=== PATIENT | male | born 1945 | race Caucasian/White ===

== ENCOUNTER 2016-05-30 11:00 | Inpatient (IN) | payer MEDICARE, OTHER ==
[2016-05-30] MEDS ORDERED: ASPIRIN 81 MG TABLET, CHEWABLE PO ONE (11:25)
--- NOTE | 2016-05-30 11:27 | ER Document Report ---
ED Medical Screen (RME) - General Stated Complaint: NAUSEA Mode of Arrival: Ambulatory Information source: Patient Notes: Patient complains of epigastric pain for the past 3 days. Patient does report nausea and vomiting. Patient states pain radiates up to his throat. hx: High blood pressure, COPD, appendectomy I have greeted and performed a rapid initial assessment of this patient. A comprehensive ED assessment and evaluation of the patient, analysis of test results and completion of the medical decision making process will be conducted by additional ED providers. - Related Data Allergies/Adverse Reactions: Penicillins Allergy (Verified 05/30/16 11:23) Past Medical History - Past Medical History Cardiac Medical History: Reports: Hx Hypertension Pulmonary Medical History: Reports: Hx Asthma Past Surgical History: Reports: Hx Appendectomy - 05/28/2013 Physical Exam - Vital signs Vitals: Temp Pulse Resp BP Pulse Ox 98.1 F 78 20 148/73 H 95 05/30/16 11:22 05/30/16 11:22 05/30/16 11:22 05/30/16 11:22 05/30/16 11:22 - Abdominal Tenderness: Tender - Epigastric Course - Vital Signs Vital signs: Temp Pulse Resp BP Pulse Ox 98.1 F 78 20 148/73 H 95 05/30/16 11:22 05/30/16 11:22 05/30/16 11:22 05/30/16 11:22 05/30/16 11:22
[2016-05-30 12:05] LABS: ABSOLUTE EOSINOPHILS # (AUTO) 0.1 10^3/uL (0.0-0.6); ABSOLUTE LYMPHOCYTES (AUTO) 1.8 10^3/uL (0.5-4.7); ABSOLUTE MONOCYTES (AUTO) 1.2 10^3/uL (0.1-1.4); ABSOLUTE NEUT (AUTO) 5.5 10^3/uL (1.7-8.2); BASOPHILS % (AUTO) 0.2 % (0-2); EOSINOPHILS % (AUTO) 1.1 % (0-6); HEMATOCRIT 51.7 % (37.9-51.0); HEMOGLOBIN 17.4 g/dL (13.5-17.0); HGB HCT DIFFERENCE 0.5; LYMPHOCYTES % (AUTO) 20.8 % (13-45); MEAN CORPUSCULAR HGB CONC 33.7 g/dL (32.0-36.0); MEAN CORPUSCULAR VOLUME 92 fl (80-97); RED BLOOD COUNT 5.62 10^6/uL (4.35-5.55); RED CELL DISTRIBUTION WIDTH 13.8 % (11.5-14.0); SEGMENTED NEUTROPHILS % (AUTO) 63.9 % (42-78); WHITE BLOOD COUNT 8.6 10^3/uL (4.0-10.5)
[2016-05-30 12:27] LABS: ALANINE AMINOTRANSFERASE 131 U/L (21-72); ALBUMIN 4.3 g/dL (3.5-5.0); ALKALINE PHOSPHATASE 70 U/L (38-126); ANION GAP 11 (5-19); ASPARTATE AMINO TRANSFERASE 62 U/L (17-59); BILIRUBIN,TOTAL 0.6 mg/dL (0.2-1.3); BLOOD UREA NITROGEN 15 mg/dL (7-20); CALCIUM 9.2 mg/dL (8.4-10.2); CARBON DIOXIDE 31 mmol/L (22-30); CHLORIDE 102 mmol/L (98-107); CREATINE KINASE 61 U/L (55-170); CREATININE RESULT 1.05 mg/dL (0.52-1.25); GLUCOSE 104 mg/dL (75-110); LIPASE 38.1 U/L (23-300); MAGNESIUM 2.3 mg/dL (1.6-2.3); POTASSIUM 4.3 mmol/L (3.6-5.0); SODIUM 144.2 mmol/L (137-145); TOTAL PROTEIN 7.2 g/dL (6.3-8.2)
[2016-05-30 12:36] LABS: TROPONIN I < 0.012 ng/mL
[2016-05-30] MEDS ORDERED: METOCLOPRAMIDE HCL ORAL SOLN 10 MG/10 ML UDCUP PO ONE (12:55)
[2016-05-30] MEDS ORDERED: LIDOCAINE 2% VISCOUS SOLN 20 ML UDCUP PO ONE (12:55)
[2016-05-30] MEDS ORDERED: NORMAL SALINE 1000 ML 1,000 ML IV ONE (12:55)
[2016-05-30] MEDS ORDERED: PANTOPRAZOLE SODIUM 40 MG VIAL IV ONE (12:55)
[2016-05-30] MEDS ORDERED: MAG HYDROX/AL HYDROX/SIMETH SUSP 30 ML UDCUP PO ONE (12:55)
--- NOTE | 2016-05-30 13:02 | ER Document Report ---
ED GI/ - General Chief Complaint: Epigastric Pain Stated Complaint: NAUSEA Mode of Arrival: Ambulatory Information source: Patient Notes: This is a 71-year-old gentleman who presents to the emergency department with three-day history of upper abdominal discomfort and gas pains. He states that the pain is exacerbated by eating. His symptoms began on with some nausea and vomiting that persisted into Tuesday morning. He states that Tuesday he initially felt better but Tuesday evening his heartburn intensified as well as his nausea and upper abdominal discomfort. His bowel movements have been normal and his last bowel movement was today. Yesterday he tolerated scrambled eggs and oatmeal although that did make his abdominal pain worse. He has had nothing to eat today. TRAVEL OUTSIDE OF THE [place] IN LAST 30 DAYS: No - Related Data Allergies/Adverse Reactions: Penicillins Allergy (Verified 05/30/16 11:23) Past Medical History - General Information source: Patient - Social History Smoking Status: Former Smoker Chew tobacco use (# tins/day): No Frequency of alcohol use: None Drug Abuse: None Family History: Reviewed & Not Pertinent Patient has suicidal ideation: No Patient has homicidal ideation: No - Past Medical History Cardiac Medical History: Reports: Hx Hypertension Pulmonary Medical History: Reports: Hx Asthma Renal/ Medical History: Denies: Hx Peritoneal Dialysis Malignancy Medical History: Reports Hx Prostate Cancer Past Surgical History: Reports: Hx Appendectomy - 05/28/2013, Hx Herniorrhaphy, Hx Orthopedic Surgery - Immunizations Hx Pneumococcal Vaccination: 02/23/13 Review of Systems - Review of Systems Notes: REVIEW OF SYSTEMS: CONSTITUTIONAL : Denies fever, chills, or sweats. EENT: Denies eye, ear, throat, or mouth pain or symptoms. Denies nasal or sinus congestion. CARDIOVASCULAR: Denies chest pain. RESPIRATORY: Denies cough, cold, or chest congestion. Denies shortness of breath, difficulty breathing, or wheezing. GASTROINTESTINAL: As per history of present illness GENITOURINARY: Denies difficulty urinating, painful urination, burning, frequency, or blood in urine. MUSCULOSKELETAL: Denies neck or back pain or joint pain or swelling. SKIN: Denies rash or skin lesions. HEMATOLOGIC : Denies easy bruising or bleeding. LYMPHATIC: Denies swollen, enlarged glands. NEUROLOGICAL: Denies altered mental status or loss of consciousness. Denies headache. PSYCHIATRIC: Denies anxiety or stress or depression. ALL OTHER SYSTEMS REVIEWED AND NEGATIVE. Physical Exam - Vital signs Vitals: Temp Pulse Resp BP Pulse Ox 98.1 F 78 20 148/73 H 95 05/30/16 11:22 05/30/16 11:22 05/30/16 11:22 05/30/16 11:22 05/30/16 11:22 PHYSICAL EXAMINATION: GENERAL: Well-appearing, obese male in no acute distress. Pleasant and conversant HEAD: Atraumatic, normocephalic. EYES: Pupils equal round and reactive to light, extraocular movements intact, sclera anicteric, conjunctiva are normal. ENT: nares patent, oropharynx clear without exudates. Moist mucous membranes. NECK: Normal range of motion, supple without lymphadenopathy LUNGS: Breath sounds clear to auscultation bilaterally and equal. No wheezes rales or rhonchi. HEART: Regular rate and rhythm without murmurs ABDOMEN: obese, protuberant abdomen. Soft. Mild epigastric and RUQ TTP, no guarding/rebound/rigidity. Bowel sounds present, hypoactive EXTREMITIES: Normal range of motion, no pitting or edema. NEUROLOGICAL: No gross focal motor or sensory deficits appreciated PSYCH: Normal mood, normal affect. SKIN: Warm, Dry, normal turgor, no rashes or lesions noted. Course - Re-evaluation Re-evalutation: 05/30/16 13:02 This patient presents with symptoms concerning for dyspepsia, I'm also concerned for possible gallbladder disease. We'll obtain ultrasound of the gallbladder and proceed from there. 05/30/16 17:[address] of the abdomen and pelvis demonstrates proximal dilated proximal small bowel consistent with mechanical obstruction although no etiology of the obstruction is identified. Patient was discussed with general surgery Dr. Valera who will consult and hospitalist Dr. Alvarenga who will admit. I discussed the plan with the patient and his and all questions were answered. At this time patient is comfortable and denies any abdominal pain or nausea. - Vital Signs Vital signs: Temp Pulse Resp BP Pulse Ox 98.1 F 78 18 137/72 H 95 05/30/16 11:23 05/30/16 11:23 05/30/16 16:01 05/30/16 16:01 05/30/16 16:01 - Laboratory Result Diagrams: 05/30/16 11:50 05/30/16 11:50 Laboratory results interpreted by me: 05/30/16 05/30/16 11:50 11:50 RBC 5.62 H Hgb 17.4 H Hct 51.7 H Monocytes % 14.0 H Carbon Dioxide 31 H AST 62 H ALT 131 H - Diagnostic Test Radiology reviewed: Reports reviewed - Chest x-ray negative for consolidation Radiology results interpreted by me: 05/30/16 14:52 Gallbladder ultrasound reviewed as negative 05/30/16 17:27 CT of the abdomen and pelvis with IV contrast demonstrated dilated proximal small bowel consistent with mechanical obstruction. - EKG Interpretation by Me Additional EKG results interpreted by me: 05/30/16 13:03 EKG from 1157 demonstrates normal sinus rhythm with a rate of 76 with normal intervals and no ST elevation or depression. Discharge - Discharge Clinical Impression: Small bowel obstruction Morbid obesity Qualifiers: Obesity type: unspecified obesity type Qualified Code(s): E66.01 - Morbid ( severe) obesity due to excess calories Disposition: ADMITTED INPATIENT Admitting Provider: Hospitalist
[2016-05-30] MEDS ORDERED: DEXTROSE 5%-LACTATED RINGERS 1,000 ML IV ONE (17:34)
[2016-05-30] MEDS ORDERED: ONDANSETRON HCL INJ/PF 4 MG/2 ML SDV IV PRN (17:55)
[2016-05-30] MEDS ORDERED: NORMAL SALINE 1000 ML 1,000 ML IV PRN (17:55)
[2016-05-30] MEDS ORDERED: ACETAMINOPHEN 325 MG TABLET PO PRN (17:55)
--- NOTE | 2016-05-30 18:09 | PDOC H&P ---
History of Present Illness Admission Date/PCP: 05/30/[address] Stephenson Patient complains of: Abdominal pain History of Present Illness: OLAMIDE ROJAS JR is a 71 year old male who has a history of a ruptured appendix requiring surgery as well as umbilical hernia repair requiring mesh who presents with a small bowel obstruction. The patient reports that 4 days prior to admission he ate a salad bar began to feel nauseous and have some upper abdominal pain. The patient came to emergency room because his pain was continuing. He reports his last bowel movement was this morning and also has had flatus. Patient had a CT scan which shows dilated loops of small bowel consistent with small bowel obstruction. Patient denies having any fevers or chills. He denies any hematemesis. Denies any melena or bright red blood per rectum. The patient has had multiple abdominal surgeries as listed above. He denies any change in his weight he denies any fevers or chills or night sweats. Denies any change in the caliber of his stool. Past Medical History Cardiac Medical History: Reports: Hypertension Pulmonary Medical History: Reports: Asthma, Chronic Obstructive Pulmonary Disease (COPD) EENT Medical History: Reports: None Neurological Medical History: Reports: None Renal/ Medical History: Reports: None Malignancy Medical History: Reports: Other - Prostate cancer GI Medical History: Reports: Gastroesophageal Reflux Disease Musculoskeltal Medical History: Reports: None Psychiatric Medical History: Reports: None Traumatic Medical History: Reports: None Hematology: Reports: None Infectious Medical History: Reports: None Past Surgical History Past Surgical History: Reports: Appendectomy - 05/28/2013, Herniorrhaphy, Orthopedic Surgery Social History Information Source: Patient Lives with: Spouse/Significant other Smoking Status: Former Smoker Frequency of Alcohol Use: Occasional Hx Recreational Drug Use: No Drugs: None Hx Prescription Drug Abuse: No - Advance Directive Resuscitation Status: Full Code Family History Family History: Father lived to be age 73 and had prostate cancer. Mother at age 99 and had no chronic health problems. Parental Family History Reviewed: Yes Children Family History Reviewed: No Sibling(s) Family History Reviewed.: No Medication/Allergy Home Medications: Acetaminophen [Pain Reliever] 500 mg PO BID 05/28/13 Cetirizine HCl 1 tab PO DAILY 05/28/13 Folic Acid/Multivit-Min/Lutein [Centrum Silver Chewable Tablet] 1 tab PO DAILY 05/28/13 Lisinopril 10 mg PO QAM 05/28/13 [place]-3 Fatty Acids/Fish Oil [Fish Oil Softgel] 720 - 2,400 mg PO DAILY Oxycodone HCl/Acetaminophen [Percocet 5-325 mg Tablet] 1 tab PO Q4HP PRN #30 tablet 05/30/13 Esomeprazole Mag Trihydrate [Nexium] 40 mg PO DAILY #30 cap 06/01/13 Famotidine [Pepcid 20 mg Tablet] 20 mg PO BID #12 tablet 06/01/13 Hydrocodone/Acetaminophen [Vicodin 5-300 mg Tablet] 1 - 2 tab PO ASDIR PRN #30 tab 06/01/13 Allergies/Adverse Reactions: Penicillins Allergy (Verified 05/30/16 11:23) Review of Systems Constitutional: ABSENT: chills, fever(s), headache(s), weight gain, weight loss Eyes: ABSENT: visual disturbances Ears: ABSENT: hearing changes Cardiovascular: ABSENT: chest pain, dyspnea on exertion, edema, orthropnea, palpitations Respiratory: ABSENT: cough, hemoptysis Gastrointestinal: PRESENT: as per HPI Genitourinary: ABSENT: dysuria, hematuria Musculoskeletal: ABSENT: joint swelling Integumentary: ABSENT: rash, wounds Neurological: ABSENT: abnormal gait, abnormal speech, confusion, dizziness, focal weakness, syncope Psychiatric: ABSENT: anxiety, depression Endocrine: ABSENT: cold intolerance, heat intolerance, polydipsia, polyuria Hematologic/Lymphatic: ABSENT: easy bleeding, easy bruising Physical Exam Vital Signs: Temp Pulse Resp BP Pulse Ox 98.1 F 78 18 137/72 H 95 05/30/16 11:23 05/30/16 11:23 05/30/16 16:01 05/30/16 16:01 05/30/16 16:01 Intake & Output 05/29/16 05/30/16 05/31/16 06:59 06:59 06:59 Weight 143.2 kg General appearance: PRESENT: no acute distress, morbidly obese Head exam: PRESENT: atraumatic, normocephalic Eye exam: PRESENT: conjunctiva pink, EOMI, PERRLA. ABSENT: scleral icterus Ear exam: PRESENT: normal external ear exam Mouth exam: PRESENT: moist, tongue midline Neck exam: ABSENT: carotid bruit, JVD, lymphadenopathy, thyromegaly Respiratory exam: PRESENT: clear to auscultation bandar. ABSENT: rales, rhonchi, wheezes Cardiovascular exam: PRESENT: RRR. ABSENT: diastolic murmur, rubs, systolic murmur Pulses: PRESENT: normal dorsalis pedis pul Vascular exam: PRESENT: normal capillary refill GI/Abdominal exam: PRESENT: hypoactive bowel sounds, soft, tenderness - Mild tenderness in epigastric area. ABSENT: distended, guarding, mass, organolmegaly , rebound Rectal exam: PRESENT: deferred Extremities exam: ABSENT: calf tenderness, clubbing, pedal edema Neurological exam: PRESENT: alert, awake, oriented to person, oriented to place , oriented to time, oriented to situation, CN II-XII grossly intact. ABSENT: motor sensory deficit Psychiatric exam: PRESENT: appropriate affect Skin exam: PRESENT: dry, intact, warm. ABSENT: cyanosis, rash Results Laboratory Results: 05/30/16 11:50 05/30/16 11:50 05/30/16 05/30/16 11:50 11:50 WBC 8.6 RBC 5.62 H Hgb 17.4 H Hct 51.7 H MCV 92 MCH 31.0 MCHC 33.7 RDW 13.8 Plt Count 185 Seg Neutrophils % 63.9 Lymphocytes % 20.8 Monocytes % 14.0 H Eosinophils % 1.1 Basophils % 0.2 Absolute Neutrophils 5.5 Absolute Lymphocytes 1.8 Absolute Monocytes 1.2 Absolute Eosinophils 0.1 Absolute Basophils 0.0 Sodium 144.2 Potassium 4.3 Chloride 102 Carbon Dioxide 31 H Anion Gap 11 BUN 15 Creatinine 1.05 Est GFR ( Amer) > 60 Est GFR (Non-Af Amer) > 60 Glucose 104 Calcium 9.2 Magnesium 2.3 Total Bilirubin 0.6 AST 62 H ALT 131 H Alkaline Phosphatase 70 Total Protein 7.2 Albumin 4.3 Lipase 38.1 05/30/16 05/30/16 11:50 11:50 Creatine Kinase 61 CK-MB (CK-2) 0.30 Troponin I < 0.012 Impressions: Chest X-Ray 05/30/16 11:26 IMPRESSION: NO SIGNIFICANT RADIOGRAPHIC FINDING IN THE CHEST. Abdomen Ultrasound 05/30/16 12:56 IMPRESSION: No gallstones or gallbladder wall thickening. Fatty infiltration of the liver Abdomen/Pelvis CT 05/30/16 14:51 IMPRESSION: 1. DILATED PROXIMAL SMALL BOWEL, CONSISTENT WITH MECHANICAL OBSTRUCTION. NO OBVIOUS ETIOLOGY. 2. FATTY INFILTRATION OF THE LIVER. CORTICAL CYST IN THE RIGHT KIDNEY. NO OTHER SIGNIFICANT OR ACUTE FINDING IN THE ABDOMEN OR PELVIS ON CT SCAN WITH IV CONTRAST. Assessment & Plan - Diagnosis (1) Small bowel obstruction Is this a current diagnosis for this admission?: YesPlan: The patient has had abdominal pain for the last 4 days and has what appears to be a small bowel obstruction on CT scan. Patient reports that his last bowel movement was this morning and he has had flatus earlier today. We will treat conservatively with IV fluids and make him nothing by mouth. We'll repeat a KUB in the morning and ask general surgery to evaluate. I suspect that given his history of multiple abdominal surgeries that he has adhesions as the cause for this. There are no systemic symptoms to suggest any type of malignancy. (2) Gastroesophageal reflux disease Is this a current diagnosis for this admission?: YesPlan: Patient takes Nexium as an outpatient. We'll give Pepcid IV (3) COPD (chronic obstructive pulmonary disease) Is this a current diagnosis for this admission?: YesPlan: Patient has no wheezing on exam. Will give nebulizers as needed. (4) Hypertension Is this a current diagnosis for this admission?: YesPlan: Patient normally takes lisinopril as an outpatient. We'll hold for now and restart it when he is able to take by mouth. (5) Morbid obesity Qualifiers: Obesity type: unspecified obesity type Qualified Code(s): E66.01 - Morbid (severe) obesity due to excess calories Is this a current diagnosis for this admission?: Yes - Time Time Spent: 50 to 70 Minutes - Inpatient Certification Medical Necessity: Need Close Monitoring Due to Risk of Patient Decompensation, Need For IV Fluids - Plan Summary Plan Summary: Will admit as a general inpatient as I anticipate this will require greater than a 2 midnight hospital stay.
--- NOTE | 2016-05-30 18:55 | PDOC CONSULTATION ---
History of Present Illness History of Present Illness: Fransico Novoa Jr is a 71-year-old white male who reports intermittent nausea vomiting and abdominal pain since evening. He reports he had a salad bar Tiff[place] Tuesdays at 2 PM for late lunch, then half of a stuffed pepper at home at 7 PM for dinner, then began experiencing nausea and vomiting at 8 PM. Throughout the day Tuesday he had abdominal pain, moderate to severe, intermittent, sharp and crampy. He tried [place]. He was also bloated. He also had nausea and vomiting Tuesday. Tuesday he had nausea but no vomiting. He had significant belching and flatus. Abdominal pain continued but was not as severe. Tuesday morning he woke and had more abdominal pain, at times severe, intermittent. Each time he ate it made his nausea vomiting and abdominal pain worse. He had a bowel movement this morning which was normal in appearance. He had 2 bowel movements Tuesday. He denies blood in his stools, diarrhea, constipation, pain with urination, blood in his urine. He denies change in the color of his stools. He reports slightly more chapis urine. The patient has a history of appendectomy with lysis of adhesions in May 2013, umbilical herniorrhaphy in 1999, prostatectomy in 2002, and right ankle surgery for fracture repair. Review of systems is positive for headache for 1 day, sinus problems for 3 weeks , earache for 1 week, left greater than right, tinnitus for many years, back pain for many years, joint aches for many years. Past Medical History Cardiac Medical History: Reports: Hypertension Pulmonary Medical History: Reports: Asthma, Chronic Obstructive Pulmonary Disease (COPD) Endocrine Medical History: Reports: Obesity Malignancy Medical History: Reports: Other - Prostate cancer Past Surgical History Past Surgical History: Reports: Appendectomy - 05/28/2013, Herniorrhaphy, Orthopedic Surgery Social History Information Source: Patient Lives with: Spouse/Significant other Smoking Status: Former Smoker - 35 year pack history, quit 15 years ago. Last Time Smoked: around 2001 Frequency of Alcohol Use: Occasional - 1, occasionally 2, drinks per night Hx Recreational Drug Use: No Drugs: None Hx Prescription Drug Abuse: No - Advance Directive Resuscitation Status: Full Code Family History Family History: Malignancy - Sister with Hodgkin lymphoma, father with prostate cancer, Other - Son from pancreatic infection age 25. Parental Family History Reviewed: Yes Children Family History Reviewed: Yes Sibling(s) Family History Reviewed.: Yes Medication/Allergy Home Medications: Acetaminophen [Pain Reliever] 500 mg PO BID 05/28/13 Cetirizine HCl 1 tab PO DAILY 05/28/13 Folic Acid/Multivit-Min/Lutein [Centrum Silver Chewable Tablet] 1 tab PO DAILY 05/28/13 Lisinopril 10 mg PO QAM 05/28/13 [place]-3 Fatty Acids/Fish Oil [Fish Oil Softgel] 720 - 2,400 mg PO DAILY Oxycodone HCl/Acetaminophen [Percocet 5-325 mg Tablet] 1 tab PO Q4HP PRN #30 tablet 05/30/13 Esomeprazole Mag Trihydrate [Nexium] 40 mg PO DAILY #30 cap 06/01/13 Famotidine [Pepcid 20 mg Tablet] 20 mg PO BID #12 tablet 06/01/13 Hydrocodone/Acetaminophen [Vicodin 5-300 mg Tablet] 1 - 2 tab PO ASDIR PRN #30 tab 06/01/13 Allergies/Adverse Reactions: Penicillins Allergy (Verified 05/30/16 11:23) Review of Systems All systems: reviewed and no additional remarkable complaints except as stated Physical Exam Vital Signs: Temp Pulse Resp BP Pulse Ox 98.1 F 78 18 137/72 H 95 05/30/16 11:23 05/30/16 11:23 05/30/16 16:01 05/30/16 16:01 05/30/16 16:01 Intake & Output 05/29/16 05/30/16 05/31/16 06:59 06:59 06:59 Weight 143.2 kg General appearance: PRESENT: no acute distress, obese Head exam: PRESENT: normocephalic Eye exam: PRESENT: EOMI Mouth exam: PRESENT: moist, tongue midline Neck exam: ABSENT: JVD, lymphadenopathy, tenderness, thyromegaly Respiratory exam: PRESENT: clear to auscultation bandar Cardiovascular exam: PRESENT: RRR - Difficult to auscultate, but regular at the wrist GI/Abdominal exam: PRESENT: distended, soft, tenderness - Minimal tenderness to palpation.. ABSENT: firm, guarding, hernia, rebound, rigid Extremities exam: ABSENT: pedal edema, tenderness Musculoskeletal exam: ABSENT: deformity, tenderness Neurological exam: PRESENT: alert, oriented to person, oriented to place, oriented to time, oriented to situation Psychiatric exam: PRESENT: appropriate affect, normal mood Skin exam: ABSENT: jaundice, rash Results Laboratory Results: 05/30/16 11:50 05/30/16 11:50 05/30/16 05/30/16 11:50 11:50 WBC 8.6 RBC 5.62 H Hgb 17.4 H Hct 51.7 H MCV 92 MCH 31.0 MCHC 33.7 RDW 13.8 Plt Count 185 Seg Neutrophils % 63.9 Lymphocytes % 20.8 Monocytes % 14.0 H Eosinophils % 1.1 Basophils % 0.2 Absolute Neutrophils 5.5 Absolute Lymphocytes 1.8 Absolute Monocytes 1.2 Absolute Eosinophils 0.1 Absolute Basophils 0.0 Sodium 144.2 Potassium 4.3 Chloride 102 Carbon Dioxide 31 H Anion Gap 11 BUN 15 Creatinine 1.05 Est GFR ( Amer) > 60 Est GFR (Non-Af Amer) > 60 Glucose 104 Calcium 9.2 Magnesium 2.3 Total Bilirubin 0.6 AST 62 H ALT 131 H Alkaline Phosphatase 70 Total Protein 7.2 Albumin 4.3 Lipase 38.1 05/30/16 05/30/16 11:50 11:50 Creatine Kinase 61 CK-MB (CK-2) 0.30 Troponin I < 0.012 Impressions: Chest X-Ray 05/30/16 11:26 IMPRESSION: NO SIGNIFICANT RADIOGRAPHIC FINDING IN THE CHEST. Abdomen Ultrasound 05/30/16 12:56 IMPRESSION: No gallstones or gallbladder wall thickening. Fatty infiltration of the liver Abdomen/Pelvis CT 05/30/16 14:51 IMPRESSION: 1. DILATED PROXIMAL SMALL BOWEL, CONSISTENT WITH MECHANICAL OBSTRUCTION. NO OBVIOUS ETIOLOGY. 2. FATTY INFILTRATION OF THE LIVER. CORTICAL CYST IN THE RIGHT KIDNEY. NO OTHER SIGNIFICANT OR ACUTE FINDING IN THE ABDOMEN OR PELVIS ON CT SCAN WITH IV CONTRAST. Status: Image reviewed by me Assessment & Plan - Diagnosis (1) History of prostate cancer Is this a current diagnosis for this admission?: Yes (2) History of appendectomy Is this a current diagnosis for this admission?: Yes (3) History of umbilical hernia repair Is this a current diagnosis for this admission?: Yes (4) COPD (chronic obstructive pulmonary disease) Is this a current diagnosis for this admission?: YesPlan: Per medicine (5) Hypertension Is this a current diagnosis for this admission?: Yes (6) Morbid obesity Qualifiers: Obesity type: unspecified obesity type Qualified Code(s): E66.01 - Morbid (severe) obesity due to excess calories Is this a current diagnosis for this admission?: Yes (7) Small bowel obstruction Is this a current diagnosis for this admission?: YesPlan: Partial small bowel obstruction. Very likely due to adhesions from previous prostate cancer surgery, umbilical hernia repair, and appendectomy for suppurative appendicitis. He was noted to have adhesions at the time of his appendectomy in 2013, and lysis of adhesions was performed to gain access to the appendix at that time. Discussed nonoperative versus operative management and indications for each. He does not have an acute abdomen, his white count is normal, his vitals are stable. Recommend nonoperative management with NG tube, IV fluids, NPO/bowel rest. Discussed indications for proceeding to the operating room. He and his understand and wish to proceed with nonoperative management of partial small bowel obstruction.
--- NOTE | 2016-05-30 19:26 | EKG REPORT ---
SEVERITY:- NORMAL ECG - SINUS RHYTHM : Confirmed by: Traci Landry 30-May-2016 19:25:36
[2016-05-30] MEDS: FAMOTIDINE INJ/PF 20 MG/2 ML SDV IV SCH (21:45)
[2016-05-31] MEDS ORDERED: INFLUENZA ADLT QUAD (36MOS+) 2016-17 VAC 0.5 ML SYR IM PRN (02:18)
[2016-05-31 06:07] LABS: MEAN CORPUSCULAR VOLUME 92 fl (80-97)
[2016-05-31 06:12] LABS: ABSOLUTE EOSINOPHILS # (AUTO) 0.2 10^3/uL (0.0-0.6); ABSOLUTE LYMPHOCYTES (AUTO) 1.6 10^3/uL (0.5-4.7); ABSOLUTE MONOCYTES (AUTO) 0.8 10^3/uL (0.1-1.4); ABSOLUTE NEUT (AUTO) 4.5 10^3/uL (1.7-8.2); BASOPHILS % (AUTO) 0.3 % (0-2); EOSINOPHILS % (AUTO) 2.7 % (0-6); HEMATOCRIT 45.8 % (37.9-51.0); HGB HCT DIFFERENCE 0.7; MEAN CORPUSCULAR HEMOGLOBIN 31.1 pg (27.0-33.4); MEAN CORPUSCULAR HGB CONC 33.9 g/dL (32.0-36.0); RED CELL DISTRIBUTION WIDTH 13.4 % (11.5-14.0); WHITE BLOOD COUNT 7.2 10^3/uL (4.0-10.5)
[2016-05-31 06:20] LABS: HEMOGLOBIN 15.5 g/dL (13.5-17.0)
[2016-05-31 06:23] LABS: ANION GAP 9 (5-19); BLOOD UREA NITROGEN 13 mg/dL (7-20); CALCIUM 8.5 mg/dL (8.4-10.2); CARBON DIOXIDE 27 mmol/L (22-30); CHLORIDE 106 mmol/L (98-107); CREATININE RESULT 0.94 mg/dL (0.52-1.25); GLUCOSE 94 mg/dL (75-110); MAGNESIUM 2.2 mg/dL (1.6-2.3); SODIUM 141.5 mmol/L (137-145)
[2016-05-31] MEDS: FAMOTIDINE INJ/PF 20 MG/2 ML SDV IV SCH (10:17)
--- NOTE | 2016-05-31 10:19 | PDOC PROGRESS REPORT ---
Subjective Progress Note for:: 05/31/16 Subjective:: Patient states she feels better. He passed some flatus. Physical Exam Vital Signs: Temp Pulse Resp BP Pulse Ox 97.5 F 73 22 H 145/67 H 97 05/31/16 07:40 05/31/16 07:40 05/31/16 07:40 05/31/16 07:40 05/31/16 07:40 Intake & Output 05/30/16 05/31/16 06/01/16 06:59 06:59 06:59 Weight 143.2 kg General appearance: PRESENT: no acute distress GI/Abdominal exam: PRESENT: other - Distended likely due to obesity; bowel sounds hypoactive. No peritoneal signs no guarding no rigidity. No evidence of mechanical abdominal wall problem. Results Laboratory Results: 05/31/16 05:36 05/31/16 05:36 05/31/16 05/31/16 05:36 05:36 WBC 7.2 RBC 5.00 Hgb 15.5 Hct 45.8 MCV 92 MCH 31.1 MCHC 33.9 RDW 13.4 Plt Count 147 L Seg Neutrophils % 63.0 Lymphocytes % 23.0 Monocytes % 11.0 Eosinophils % 2.7 Basophils % 0.3 Absolute Neutrophils 4.5 Absolute Lymphocytes 1.6 Absolute Monocytes 0.8 Absolute Eosinophils 0.2 Absolute Basophils 0.0 Sodium 141.5 Potassium 4.0 Chloride 106 Carbon Dioxide 27 Anion Gap 9 BUN 13 Creatinine 0.94 Est GFR ( Amer) > 60 Est GFR (Non-Af Amer) > 60 Glucose 94 Calcium 8.5 Magnesium 2.2 Impressions: Chest X-Ray 05/30/16 11:26 IMPRESSION: NO SIGNIFICANT RADIOGRAPHIC FINDING IN THE CHEST. Abdomen Ultrasound 05/30/16 12:56 IMPRESSION: No gallstones or gallbladder wall thickening. Fatty infiltration of the liver Abdomen/Pelvis CT 05/30/16 14:51 IMPRESSION: 1. DILATED PROXIMAL SMALL BOWEL, CONSISTENT WITH MECHANICAL OBSTRUCTION. NO OBVIOUS ETIOLOGY. 2. FATTY INFILTRATION OF THE LIVER. CORTICAL CYST IN THE RIGHT KIDNEY. NO OTHER SIGNIFICANT OR ACUTE FINDING IN THE ABDOMEN OR PELVIS ON CT SCAN WITH IV CONTRAST. KUB X-Ray 05/31/16 07:00 IMPRESSION: Some decrease in small bowel dilatation. Assessment & Plan - Diagnosis (1) Small bowel obstruction Is this a current diagnosis for this admission?: YesPlan: 1. I have the opportunity to review his abdominal films this morning. Examination, as well as his course over the last 24 hours, and repeat imaging suggest the patient gastroenteritis. SMall bowel obstruction appears very unlikely. 2. Will start diet with clear liquids and advance as tolerated. 3. I spoke with Dr. Jassi Alvarenga about the above. Surgery will sign off; will be available for re-consultation if clinically indicated
--- NOTE | 2016-05-31 11:48 | PDOC PROGRESS REPORT ---
Subjective Progress Note for:: 05/31/16 Subjective:: Patient feels better. He has been passing some flatus. Physical Exam Vital Signs: Temp Pulse Resp BP Pulse Ox 97.5 F 73 22 H 145/67 H 97 05/31/16 07:40 05/31/16 07:40 05/31/16 07:40 05/31/16 07:40 05/31/16 07:40 Intake & Output 05/30/16 05/31/16 06/01/16 06:59 06:59 06:59 Weight 143.2 kg General appearance: PRESENT: no acute distress Eye exam: PRESENT: conjunctiva pink. ABSENT: scleral icterus Mouth exam: PRESENT: moist, tongue midline Neck exam: ABSENT: JVD Respiratory exam: PRESENT: clear to auscultation bandar. ABSENT: rales, rhonchi, wheezes Cardiovascular exam: PRESENT: RRR. ABSENT: diastolic murmur, rubs, systolic murmur GI/Abdominal exam: PRESENT: normal bowel sounds, soft. ABSENT: distended, guarding, mass, organolmegaly, rebound, tenderness Extremities exam: ABSENT: calf tenderness, clubbing, pedal edema Neurological exam: PRESENT: alert, awake, oriented to person, oriented to place , oriented to time, oriented to situation Psychiatric exam: PRESENT: appropriate affect Skin exam: PRESENT: dry, intact, warm. ABSENT: cyanosis, rash Results Laboratory Results: 05/31/16 05:36 05/31/16 05:36 05/31/16 05/31/16 05:36 05:36 WBC 7.2 RBC 5.00 Hgb 15.5 Hct 45.8 MCV 92 MCH 31.1 MCHC 33.9 RDW 13.4 Plt Count 147 L Seg Neutrophils % 63.0 Lymphocytes % 23.0 Monocytes % 11.0 Eosinophils % 2.7 Basophils % 0.3 Absolute Neutrophils 4.5 Absolute Lymphocytes 1.6 Absolute Monocytes 0.8 Absolute Eosinophils 0.2 Absolute Basophils 0.0 Sodium 141.5 Potassium 4.0 Chloride 106 Carbon Dioxide 27 Anion Gap 9 BUN 13 Creatinine 0.94 Est GFR ( Amer) > 60 Est GFR (Non-Af Amer) > 60 Glucose 94 Calcium 8.5 Magnesium 2.2 Impressions: Chest X-Ray 05/30/16 11:26 IMPRESSION: NO SIGNIFICANT RADIOGRAPHIC FINDING IN THE CHEST. Abdomen Ultrasound 05/30/16 12:56 IMPRESSION: No gallstones or gallbladder wall thickening. Fatty infiltration of the liver Abdomen/Pelvis CT 05/30/16 14:51 IMPRESSION: 1. DILATED PROXIMAL SMALL BOWEL, CONSISTENT WITH MECHANICAL OBSTRUCTION. NO OBVIOUS ETIOLOGY. 2. FATTY INFILTRATION OF THE LIVER. CORTICAL CYST IN THE RIGHT KIDNEY. NO OTHER SIGNIFICANT OR ACUTE FINDING IN THE ABDOMEN OR PELVIS ON CT SCAN WITH IV CONTRAST. KUB X-Ray 05/31/16 07:00 IMPRESSION: Some decrease in small bowel dilatation. Assessment & Plan - Diagnosis (1) Small bowel obstruction Is this a current diagnosis for this admission?: YesPlan: The patient has had improvement and is passing flatus. He has been evaluated by surgery who recommends that we advance his diet to full liquids. Will observe today and will you discharge home later this afternoon or tomorrow. Most likely has intra-abdominal adhesions as the cause for his symptoms. (2) Gastroesophageal reflux disease Is this a current diagnosis for this admission?: YesPlan: Patient takes Nexium as an outpatient. (3) COPD (chronic obstructive pulmonary disease) Is this a current diagnosis for this admission?: YesPlan: Patient has no wheezing on exam. Will give nebulizers as needed. (4) Hypertension Is this a current diagnosis for this admission?: YesPlan: Patient normally takes lisinopril as an outpatient. We'll hold for now and restart it when he is able to take by mouth. (5) Morbid obesity Qualifiers: Obesity type: unspecified obesity type Qualified Code(s): E66.01 - Morbid (severe) obesity due to excess calories Is this a current diagnosis for this admission?: Yes - Time Time Spent with patient: 25-34 minutes
--- NOTE | 2016-05-31 16:52 | PDOC DISCHARGE SUMMARY ---
General - Admit/Disc Date/PCP Admission Date/Primary Care Provider: 05/30/16 17:55 Discharge Date: 05/31/16 - Discharge Diagnosis (1) Small bowel obstruction Is this a current diagnosis for this admission?: YesSummary: With resolution of obstruction spontaneously. (2) Gastroesophageal reflux disease Is this a current diagnosis for this admission?: Yes (3) COPD (chronic obstructive pulmonary disease) Is this a current diagnosis for this admission?: Yes (4) Hypertension Is this a current diagnosis for this admission?: Yes (5) Morbid obesity Is this a current diagnosis for this admission?: Yes - Additional Information Resuscitation Status: Full Code Discharge Diet: Full Liquids - x 24 hours then regular Discharge Activity: Activity As Tolerated Home Medications: Acetaminophen [Tylenol Extra Strength 500 mg Tablet] 1,000 mg PO Q12 05/31/16 Albuterol Sulfate [Proair HFA] 1 puff IH Q4HP PRN 05/31/16 Ascorbic Acid [Vitamin C 500 mg Tablet] 500 mg PO DAILY 05/31/16 Calcium Carbonate/Vitamin D3 [Calcium 600 + Vit D Tablet] 1 tab PO DAILY Cetirizine HCl [Zyrtec 10 mg Tablet] 10 mg PO DAILY 05/31/16 Cyanocobalamin (Vitamin B-12) [Vitamin B12] 5,000 mcg PO DAILY 05/31/16 Fish Oil/Dha/Epa [Fish Oil 1,200 mg Fish Oil] 2,400 mg PO DAILY 05/31/16 Fluticasone/Salmeterol [Advair 250-50 Diskus 28 dose] 1 inh PO Q12 05/31/16 Gluc Alexander/Chondro Alexander A/Vit C/Mn [Glucosamine 1,500 Complex Cap] 1 cap PO DAILY 10/09 Lisinopril [Prinivil 10 mg Tablet] 10 mg PO DAILY 05/31/16 Meloxicam [Mobic 15 mg Tablet] 15 mg PO DAILY 05/31/16 Multivit-Min/FA/Lycopen/Lutein [Centrum Silver Men Tablet] 1 each PO DAILY 05/31 Vitamin B Complex 1 tab PO DAILY 05/31/16 History of Present Illness History of Present Illness: OLAMIDE ROJAS JR is a 71 year old male who has a history of a ruptured appendix requiring surgery as well as umbilical hernia repair requiring mesh who presents with a small bowel obstruction. The patient reports that 4 days prior to admission he ate a salad bar began to feel nauseous and have some upper abdominal pain. The patient came to emergency room because his pain was continuing. He reports his last bowel movement was this morning and also has had flatus. Patient had a CT scan which shows dilated loops of small bowel consistent with small bowel obstruction. Patient denies having any fevers or chills. He denies any hematemesis. Denies any melena or bright red blood per rectum. The patient has had multiple abdominal surgeries as listed above. He denies any change in his weight he denies any fevers or chills or night sweats. Denies any change in the caliber of his stool. Hospital Course Hospital Course: Patient was admitted with a small bowel obstruction. He was given fluids overnight and he had continued flatus and did have a bowel movement on the day of discharge. He was evaluated with repeat x-rays as well as a surgical evaluation was felt that he had no evidence for obstruction at this time. Because of this we started him on a clear liquid diet which she tolerated well. He is instructed to do a full liquid diet for the next 24 hours and go to a regular diet after that. He will return if his pain worsens or if he notices that his bowels stop working again. Physical Exam Vital Signs: Temp Pulse Resp BP Pulse Ox 97.4 F 81 20 147/66 H 96 05/31/16 11:56 05/31/16 11:56 05/31/16 11:56 05/31/16 11:56 05/31/16 11:56 Intake & Output 05/30/16 05/31/16 06/01/16 06:59 06:59 06:59 Weight 143.2 kg General appearance: PRESENT: no acute distress Eye exam: PRESENT: conjunctiva pink. ABSENT: scleral icterus Ear exam: PRESENT: normal external ear exam Mouth exam: PRESENT: moist, tongue midline Neck exam: ABSENT: carotid bruit, JVD, lymphadenopathy, thyromegaly Respiratory exam: PRESENT: clear to auscultation bandar. ABSENT: rales, rhonchi, wheezes Cardiovascular exam: PRESENT: RRR. ABSENT: diastolic murmur, rubs, systolic murmur Pulses: PRESENT: normal dorsalis pedis pul GI/Abdominal exam: PRESENT: normal bowel sounds, soft. ABSENT: distended, guarding, mass, organolmegaly, rebound, tenderness Extremities exam: PRESENT: full ROM. ABSENT: calf tenderness, clubbing, pedal edema Neurological exam: PRESENT: alert, awake, oriented to person, oriented to place , oriented to time, oriented to situation Psychiatric exam: PRESENT: appropriate affect Skin exam: PRESENT: dry, intact, warm. ABSENT: cyanosis, rash Results Laboratory Results: 05/31/16 05:36 05/31/16 05:36 05/31/16 05/31/16 05:36 05:36 WBC 7.2 RBC 5.00 Hgb 15.5 Hct 45.8 MCV 92 MCH 31.1 MCHC 33.9 RDW 13.4 Plt Count 147 L Seg Neutrophils % 63.0 Lymphocytes % 23.0 Monocytes % 11.0 Eosinophils % 2.7 Basophils % 0.3 Absolute Neutrophils 4.5 Absolute Lymphocytes 1.6 Absolute Monocytes 0.8 Absolute Eosinophils 0.2 Absolute Basophils 0.0 Sodium 141.5 Potassium 4.0 Chloride 106 Carbon Dioxide 27 Anion Gap 9 BUN 13 Creatinine 0.94 Est GFR ( Amer) > 60 Est GFR (Non-Af Amer) > 60 Glucose 94 Calcium 8.5 Magnesium 2.2 Impressions: Chest X-Ray 05/30/16 11:26 IMPRESSION: NO SIGNIFICANT RADIOGRAPHIC FINDING IN THE CHEST. Abdomen Ultrasound 05/30/16 12:56 IMPRESSION: No gallstones or gallbladder wall thickening. Fatty infiltration of the liver Abdomen/Pelvis CT 05/30/16 14:51 IMPRESSION: 1. DILATED PROXIMAL SMALL BOWEL, CONSISTENT WITH MECHANICAL OBSTRUCTION. NO OBVIOUS ETIOLOGY. 2. FATTY INFILTRATION OF THE LIVER. CORTICAL CYST IN THE RIGHT KIDNEY. NO OTHER SIGNIFICANT OR ACUTE FINDING IN THE ABDOMEN OR PELVIS ON CT SCAN WITH IV CONTRAST. KUB X-Ray 05/31/16 07:00 IMPRESSION: Some decrease in small bowel dilatation. Qualifiers PATEINT BEING DISCHARGED WITH ANY OF THE FOLLOWING DIAGNOSIS?: No Plan Discharge Plan: Discharged to home. Will follow up with primary care in 1-2 weeks. Time Spent: Less than 30 Minutes
[2016-05-31 17:36] VITALS: BP 134/67
== END 2016-05-31 17:36 | disposition home or self-care (01) | DRG 389 ==
LOC: ER 11:00 → EH 17:55 → UNDOADMIN 18:46 → EH 18:46 → 4W 05-31 00:30
PROVIDERS: ADMIT Internal Medicine; ATTEND Internal Medicine
PROC: 3E0234Z Introduction of Serum, Toxoid and Vaccine into Muscle, Percutaneous Approach (ICD-10-PCS; principal; 2016-05-31)
DX: K56.60 Unspecified intestinal obstruction (principal); Z68.41 Body mass index [BMI] 40.0-44.9, adult; K21.9 Gastro-esophageal reflux disease without esophagitis; J44.9 Chronic obstructive pulmonary disease, unspecified; I10 Essential (primary) hypertension; E66.01 Morbid (severe) obesity due to excess calories; J45.909 Unspecified asthma, uncomplicated; Z90.49 Acquired absence of other specified parts of digestive tract; Z85.46 Personal history of malignant neoplasm of prostate; Z90.79 Acquired absence of other genital organ(s); Z87.891 Personal history of nicotine dependence; Z80.7 Family history of other malignant neoplasms of lymphoid, hematopoietic and related tissues; Z88.0 Allergy status to penicillin; Z79.899 Other long term (current) drug therapy; Z23 Encounter for immunization
CPT/HCPCS: 36415; 71020; 74000; 74177; 76705; 80048; 80053; 80074; 82550; 82553; 83690; 83735; 84484; 85025; 90686; 93005; 93010; 96361; 96374; 99285; J3490; J7030; S0028; S0164

== ENCOUNTER → 2017-09-22 | Outpatient (CLI) | payer MEDICARE, OTHER ==
--- NOTE | 2017-09-22 16:44 | RADIOLOGY REPORT (SQ) ---
EXAM DESCRIPTION: MRI LT LOWER JOINT WITHOUT COMPLETED DATE/TIME: 09/22/2017 9:47 am REASON FOR STUDY: L KNEE PAIN M25.562 PAIN IN LEFT KNEE COMPARISON: None. TECHNIQUE: Leftknee images acquired and stored on PACS. Multiplanar images include fat sensitive se quences as T1, water sensitive sequences as FST2 or STIR, cartilage sensitive sequences as FSPD, and gradient echo sequences. LIMITATIONS: None. FINDINGS: JOINT AND BURSAE: Joint effusion. BONE CORTEX AND MARROW: No alteration of signal to suggest marrow replacement. No worrisome bone lesi ons. No occult fracture. ACL: Intact. No degeneration or ganglion cyst. PCL: Intact. MCL: Intact. No periligamentous edema or fluid. LCL: Intact. No periligamentous edema or fluid. MEDIAL MENISCUS: Medial migration. Attenuated. Increased signal posterior horn extending to the art icular surface in the horizontal plane. LATERAL MENISCUS: Attenuated. Increased signal anterior horn extending to the articular surface in t he horizontal plane. MEDIAL COMPARTMENT: Cartilage loss. Small osteophytes. LATERAL COMPARTMENT: Cartilage thinning. No large osteophytes. PATELLA: Cartilage thinning. Mild subchondral cyst formation. Intact retinaculum. EXTENSOR MECHANISM: Intact. Quadriceps and patella tendons normal. SOFT TISSUES: Adjacent muscles and subcutaneous tissues normal. Normal flow void in popliteal artery and vein. OTHER: No other significant finding. IMPRESSION: 1. Chronic appearing horizontal tears posterior horn medial meniscus and anterior horn lateral menisc us. 2. 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 3. Joint effusion. TECHNICAL DOCUMENTATION: JOB ID: [id number] [employer]- All Rights Reserved Reading location - IP/workstation name: [email or web address]
== END ==
LOC: RAD 08:49
PROVIDERS: ATTEND Orthopaedic Surgery Sports Medicine
DX: M25.562 Pain in left knee (principal)

== ENCOUNTER → 2018-01-27 | Outpatient (CLI) | payer MEDICARE, OTHER ==
--- NOTE | 2018-01-27 13:29 | RADIOLOGY REPORT (SQ) ---
EXAM DESCRIPTION: MRI LUMBAR SPINE WITHOUT COMPLETED DATE/TIME: 01/27/2018 12:59 pm REASON FOR STUDY: M54.16 RADICULOPATHY, LUMBAR REGION M54.16 RADICULOPATHY, LUMBAR REGION COMPARISON: None. TECHNIQUE: Sagittal and Axial imaging includes T1, T2, STIR and gradient echo sequences. Coronal T2/ HASTE imaging. LIMITATIONS: None. FINDINGS: VISUALIZED UPPER ABDOMEN: Limited evaluation. No acute or suspicious findings suggested. SEGMENTATION: No transitional anatomy. The lowest well-developed disc space is labeled L5-S1. ALIGNMENT: Minimal grade 1 anterolisthesis of L4 over L5. VERTEBRAE: Intact. BONE MARROW: Normal. No marrow replacement or reactive changes. DISC SIGNAL: Diffuse decreased T2 weighted intervertebral disc signal POSTERIOR ELEMENTS: Generally intact. No pars defect evident. HARDWARE: None in the spine. CORD AND CONUS: Normal in size and signal intensity. Conus at the L1-2 level. SOFT TISSUES: No aortic aneurysm seen. No bulky retroperitoneal adenopathy or mass. No paraspinal mas s or fluid. T11-12: Unremarkable T12-L1: Unremarkable L1-L2: Unremarkable L2-L3: Minimal diffuse posterior disc bulging, mild bilateral facet and ligament hypertrophy. No percy tral stenosis. Mild bilateral inferior foraminal narrowing without exit L2 nerve root impingement L3-L4: Minimal posterior disc bulge. Mild bilateral facet and ligament hypertrophy. No central brianan l narrowing. Mild bilateral foraminal stenosis. L4-L5: Grade 1 anterolisthesis of L4 over L5 is present, with bulky bilateral facet hypertrophy. No central stenosis. Moderate bilateral foraminal narrowing right greater than left. There is some par tial effacement of the fat planes around the exiting L4 nerve roots bilaterally L5-S1: Minimal posterior disc bulging, mild bilateral facet and ligament hypertrophy. No central henrique nosis or significant foraminal narrowing SACRUM: Visualized upper sacrum intact. OTHER: No other significant findings. IMPRESSION: Degenerative changes most pronounced at L4-5 TECHNICAL DOCUMENTATION: JOB ID: [id number] [employer]- All Rights Reserved Reading location - IP/workstation name: [email or web address]
== END ==
LOC: RAD 16:25
PROVIDERS: ATTEND Orthopaedic Surgery Sports Medicine
DX: M54.16 Radiculopathy, lumbar region (principal)
CPT/HCPCS: 72148

== ENCOUNTER 2018-07-07 05:35 | Emergency (ER) | payer MEDICARE, OTHER ==
[2018-07-07] MEDS ORDERED: ONDANSETRON HCL INJ/PF 4 MG/2 ML SDV IV ONE ×2 (09:14→12:53)
--- NOTE | 2018-07-07 09:16 | RADIOLOGY REPORT (SQ) ---
EXAM DESCRIPTION: CHEST SINGLE VIEW COMPLETED DATE/TIME: 07/07/2018 9:07 am REASON FOR STUDY: sob COMPARISON: 05/30/2016 EXAM PARAMETERS: NUMBER OF VIEWS: One view. TECHNIQUE: Single frontal radiographic view of the chest acquired. RADIATION DOSE: NA LIMITATIONS: None. FINDINGS: LUNGS AND PLEURA: No opacities, masses or pneumothorax. No pleural effusion. MEDIASTINUM AND HILAR STRUCTURES: No masses. Contour normal. HEART AND VASCULAR STRUCTURES: Stable appearance. Normal vasculature. BONES: No acute findings. HARDWARE: None in the chest. OTHER: No other significant finding. IMPRESSION: 1. No significant interval changes since the prior study dated 05/30/2016. No acute find ings. TECHNICAL DOCUMENTATION: JOB ID: [id number] [employer]- All Rights Reserved Reading location - IP/workstation name: [email or web address]
[2018-07-07 09:27] LABS: ABSOLUTE LYMPHOCYTES (AUTO) 1.3 10^3/uL (0.5-4.7); ABSOLUTE MONOCYTES (AUTO) 0.9 10^3/uL (0.1-1.4); ABSOLUTE NEUT (AUTO) 6.3 10^3/uL (1.7-8.2); BASOPHILS % (AUTO) 0.1 % (0-2); EOSINOPHILS % (AUTO) 0.2 % (0-6); HEMATOCRIT 50.1 % (37.9-51.0); HEMOGLOBIN 17.3 g/dL (13.5-17.0); LYMPHOCYTES % (AUTO) 15.7 % (13-45); MEAN CORPUSCULAR HEMOGLOBIN 31.8 pg (27.0-33.4); MEAN CORPUSCULAR HGB CONC 34.6 g/dL (32.0-36.0); MEAN CORPUSCULAR VOLUME 92 fl (80-97); MONOCYTES % (AUTO) 10.3 % (3-13); PLATELET COUNT 218 10^3/uL (150-450); RED BLOOD COUNT 5.44 10^6/uL (4.35-5.55); RED CELL DISTRIBUTION WIDTH 13.5 % (11.5-14.0); SEGMENTED NEUTROPHILS % (AUTO) 73.7 % (42-78); TOTAL CELLS COUNTED % (AUTO) 100 %; WHITE BLOOD COUNT 8.5 10^3/uL (4.0-10.5)
[2018-07-07 09:33] LABS: INTERNATIONAL RATION (INR) 0.98; PROTHROMBIN TIME 13.5 SEC (11.4-15.4)
[2018-07-07 09:42] LABS: ALANINE AMINOTRANSFERASE 38 U/L (21-72); ALBUMIN 4.7 g/dL (3.5-5.0); ALKALINE PHOSPHATASE 65 U/L (38-126); ANION GAP 14 (5-19); ASPARTATE AMINO TRANSFERASE 27 U/L (17-59); BILIRUBIN,DIRECT 0.3 mg/dL (0.0-0.4); BILIRUBIN,TOTAL 0.7 mg/dL (0.2-1.3); BLOOD UREA NITROGEN 19 mg/dL (7-20); CARBON DIOXIDE 27 mmol/L (22-30); CHLORIDE 101 mmol/L (98-107); CREATINE KINASE 28 U/L (55-170); GLUCOSE 113 mg/dL (75-110); POTASSIUM 3.8 mmol/L (3.6-5.0); SODIUM 141.8 mmol/L (137-145); TOTAL PROTEIN 7.6 g/dL (6.3-8.2)
[2018-07-07 09:55] LABS: CREATINE KINASE MB < 0.22 ng/mL (<4.55); TROPONIN I < 0.012 ng/mL
[2018-07-07] MEDS ORDERED: NORMAL SALINE 500 ML IV ONE (10:26)
[2018-07-07] MEDS ORDERED: NORMAL SALINE 1000 ML 1,000 ML IV ONE (10:26)
--- NOTE | 2018-07-07 12:40 | RADIOLOGY REPORT (SQ) ---
EXAM DESCRIPTION: CT ABD/PELVIS WITH IV ORAL COMPLETED DATE/TIME: 07/07/2018 12:19 pm REASON FOR STUDY: hx of sbo COMPARISON: None. TECHNIQUE: CT scan of the abdomen and pelvis performed with intravenous and oral contrast using héctor lauren scanning technique with dynamic intravenous contrast injection. Images reviewed with lung, soft t issue, and bone windows. Reconstructed coronal and sagittal MPR images reviewed. 05/30/2016 All images stored on PACS. All CT scanners at this facility use dose modulation, iterative reconstruction, and/or weight based d osing when appropriate to reduce radiation dose to as low as reasonably achievable (ALARA). [facility]: Dose Right [facility]: CareDose [facility]: Dose Right [facility]: Teradose 4D [facility]: [facility] CONTRAST TYPE AND DOSE: contrast/concentration: Isovue 350.00 mg/ml; Total Contrast Delivered: 100.0 ml; Total Saline Delivered: 71.0 ml RENAL FUNCTION: GFR > 60. RADIATION DOSE: CT Rad equipment meets quality standard of care and radiation dose reduction techniq ues were employed. CTDIvol: 20.4 - 21.1 mGy. DLP: 2303 mGy-cm. . LIMITATIONS: Limited oral contrast. FINDINGS: LOWER CHEST: No significant findings. No nodules or infiltrates. LIVER: Normal size. No masses. No dilated ducts. SPLEEN: Normal size. No focal lesions. PANCREAS: No masses. No significant calcifications. No adjacent inflammation or peripancreatic fluid collections. Pancreatic duct not dilated. GALLBLADDER: No identified stones by CT criteria. No inflammatory changes to suggest cholecystitis. ADRENAL GLANDS: No significant masses or asymmetry. RIGHT KIDNEY AND URETER: No solid masses. No significant calcifications. No hydronephrosis or hyd roureter. LEFT KIDNEY AND URETER: No solid masses. No significant calcifications. No hydronephrosis or hydr oureter. AORTA AND VESSELS: No aneurysm. No dissection. Renal arteries, SMA, celiac without stenosis. RETROPERITONEUM: No retroperitoneal adenopathy, hemorrhage or masses. BOWEL AND PERITONEAL CAVITY: Dependent 5 cm low-density focus in the stomach. Dilated loops of small bowel with gas fluid levels proximal jejunum. Gradual transition to more normal caliber distal jeju num and terminal ileum. No ascites or free air. APPENDIX: Surgically absent. PELVIS: No significant masses. Normal bladder. No free fluid. ABDOMINAL WALL: No masses. No hernias. BONES: Nothing acute. OTHER: No other significant finding. IMPRESSION: Ileus or partial small bowel obstruction. Dependent food material in the stomach. Correlate with patient food intake history. Gastric mass co nsidered less likely. TECHNICAL DOCUMENTATION: JOB ID: [id number] Quality ID # [id number]: Final reports with documentation of one or more dose reduction techniques (e.g., Au tomated exposure control, adjustment of the mA and/or kV according to patient size, use of iterative reconstruction technique) 2010 [employer]- All Rights Reserved Reading location - IP/workstation name: [email or web address]
[2018-07-07] MEDS ORDERED: FAMOTIDINE INJ/PF 20 MG/2 ML SDV IV ONE (12:53)
[2018-07-07] MEDS ORDERED: MORPHINE SULFATE 10 MG/ML INJ IV ONE (12:53)
--- NOTE | 2018-07-07 13:12 | ER Document Report ---
ED General - General Chief Complaint: Nausea/Vomiting Stated Complaint: NAUSEA,HEARTBURN Time Seen by Provider: 07/07/18 08:48 Primary Care Provider: DAVID BERNARDO MD [Primary Care Provider] - Follow up in 1 week TRAVEL OUTSIDE OF THE [place] IN LAST 30 DAYS: No - HPI Patient complains to provider of: Nausea vomiting abdominal pain Notes: Patient coming in for nausea vomiting abdominal pain. Patient has a history of small bowel obstructions in the past. Patient states he relates to scar tissue after having his appendix removed. Patient states pain is the left upper quadrant. Patient denies any fevers chills . Patient denies any changes to his medication patient states decreased flatus over the last 24 hours as well. Patient states similar feeling when he had small bowel obstruction in the past. - Related Data Allergies/Adverse Reactions: Penicillins Allergy (Verified 07/07/18 05:36) Past Medical History - Social History Smoking Status: Never Smoker Chew tobacco use (# tins/day): No Frequency of alcohol use: None Drug Abuse: None Family History: Reviewed & Not Pertinent, Malignancy - Sister with Hodgkin lymphoma, father with prostate cancer, Other - Son from pancreatic infection age 25. Patient has suicidal ideation: No Patient has homicidal ideation: No - Past Medical History Cardiac Medical History: Reports: Hx Hypertension Pulmonary Medical History: Reports: Hx Asthma, Hx COPD Renal/ Medical History: Denies: Hx Peritoneal Dialysis Malignancy Medical History: Reports Hx Prostate Cancer GI Medical History: Reports: Hx Gastroesophageal Reflux Disease Past Surgical History: Reports: Hx Appendectomy - 05/28/2013, Hx Herniorrhaphy, Hx Orthopedic Surgery, Other - Prostate resection - Immunizations Hx Pneumococcal Vaccination: 02/23/13 Review of Systems - Review of Systems Constitutional: No symptoms reported EENT: No symptoms reported Cardiovascular: No symptoms reported Respiratory: No symptoms reported Gastrointestinal: Abdominal pain, Nausea, Vomiting Genitourinary: No symptoms reported Male Genitourinary: No symptoms reported Musculoskeletal: No symptoms reported Skin: No symptoms reported Hematologic/Lymphatic: No symptoms reported Neurological/Psychological: No symptoms reported -: Yes All other systems reviewed and negative Physical Exam - Vital signs Vitals: Temp Pulse Resp BP Pulse Ox 98.2 F 91 26 H 149/77 H 96 07/07/18 05:41 07/07/18 05:41 07/07/18 05:41 07/07/18 05:41 07/07/18 05:41 Interpretation: Normal - General General appearance: Appears well, Alert - HEENT Head: Normocephalic, Atraumatic Eyes: Normal Pupils: PERRL - Respiratory Respiratory status: No respiratory distress Chest status: Nontender Breath sounds: Normal Chest palpation: Normal - Cardiovascular Rhythm: Regular Heart sounds: Normal auscultation Murmur: No - Abdominal Inspection: Normal, Obese Distension: No distension Bowel sounds: Hyperactive Tenderness: Nontender Organomegaly: No organomegaly - Back Back: Normal, Nontender - Extremities General upper extremity: Normal inspection, Nontender, Normal color, Normal ROM, Normal temperature General lower extremity: Normal inspection, Nontender, Normal color, Normal ROM, Normal temperature, Normal weight bearing. No: Alvaro's sign - Neurological Neuro grossly intact: Yes Cognition: Normal Orientation: AAOx4 Carmelo Coma Scale Eye Opening: Spontaneous Martelle Coma Scale Verbal: Oriented Carmelo Coma Scale Motor: Obeys Commands Martelle Coma Scale Total: 15 Speech: Normal Motor strength normal: LUE, RUE, LLE, RLE Sensory: Normal - Psychological Associated symptoms: Normal affect, Normal mood - Skin Skin Temperature: Warm Skin Moisture: Dry Skin Color: Normal Course - Re-evaluation Re-evalutation: 07/07/18 13:09 Antiemetics IV fluids pain medication given to the patient. Patient underwent a CT scan with oral and IV contrast showing ileus versus partial small bowel obstruction. Patient still having significant pain and nausea. I did discuss the case with Dr. Cotter. Requesting a small bowel series to be performed patient with Gastrografin and that he will come down and evaluate the patient. 07/07/18 13:34 Patient will be signed out to Dr. Hays - Vital Signs Vital signs: Temp Pulse Resp BP Pulse Ox 98.2 F 91 18 147/80 H 96 07/07/18 05:41 07/07/18 05:41 07/07/18 11:01 07/07/18 11:01 07/07/18 11:01 - Laboratory Result Diagrams: 07/07/18 09:13 07/07/18 09:13 Laboratory results interpreted by me: 07/07/18 07/07/18 09:13 09:13 Hgb 17.3 H Glucose 113 H Creatine Kinase 28 L Discharge - Discharge Clinical Impression: Ileus Instructions: Bowel Obstruction ([facility]), Clear Liquid Diet ([facility]) Additional Instructions: Your CT scan today shows signs of an ileus or slowing down of the bowels. This can cause nausea vomiting and abdominal pain. Please take the Zofran as prescribed for nausea control. Please take Bentyl Tylenol for your abdominal pain. Please stick with a clear liquid diet for the next 12-24 hours. After which she can advance to starchy foods such as crackers toast cereal Return to the ER if symptoms worsen. Prescriptions: Dicyclomine HCl [Bentyl 20 mg Tablet] 20 mg PO QID #30 tablet Ondansetron [Zofran Odt 4 mg Tablet] 1 - 2 tab PO Q4H PRN #30 tab.rapdis PRN Reason: For Nausea/Vomiting Referrals: DAVID BERNARDO MD [Primary Care Provider] - Follow up in 1 week
--- NOTE | 2018-07-07 13:13 | EKG REPORT ---
SEVERITY:- ABNORMAL ECG - SINUS RHYTHM INCOMPLETE RIGHT BUNDLE BRANCH BLOCK : Confirmed by: Diomedes Vargas MD 07-Jul-2018 13:13:03
--- NOTE | 2018-07-07 19:23 | RADIOLOGY REPORT (SQ) ---
EXAM DESCRIPTION: SMALL BOWEL SERIES COMPLETED DATE/TIME: 07/07/2018 7:09 pm REASON FOR STUDY: Follow-up CT scan with Gastrografin COMPARISON: CT abdomen and pelvis performed 07/07/2018 TECHNIQUE: Serial supine radiographic images of the abdomen and pelvis were performed for the evalua tion of enteric contrast propagation after CT imaging. LIMITATIONS: None. FINDINGS: Initial imaging demonstrates enteric contrast within the stomach and multiple prominent lo ops of small bowel. Imaging performed at 30 minutes, 1 hour, 2 hours, and 4.5 hours demonstrates con tinued propagation of enteric contrast to the level of the rectum. Incidental note is made of contin ued urinary excretion of previously administered intravenous contrast. No additional findings. IMPRESSION: Findings consistent with ileus. No evidence of small bowel obstruction. TECHNICAL DOCUMENTATION: JOB ID: [id number] [employer]- All Rights Reserved Reading location - IP/workstation name: [email or web address]
[2018-07-07 20:21] VITALS: BP 144/66
== END 2018-07-07 20:27 | disposition home or self-care (01) ==
LOC: ER 05:35
DX: K56.7 Ileus, unspecified (principal); R11.2 Nausea with vomiting, unspecified; R10.9 Unspecified abdominal pain; R10.12 Left upper quadrant pain; I10 Essential (primary) hypertension; J44.9 Chronic obstructive pulmonary disease, unspecified
CPT/HCPCS: 93005; 96376; 99284; 96361; 96374; 96375; 36415; 82553; 82550; 85025; 85610; 80053; 84484; 71045; 74250; 74177; 93010; J2270; J2405; J7030; J7040; S0028

== ENCOUNTER 2018-08-23 09:51 | Day surgery (SDC) | payer MEDICARE, OTHER ==
[~2018-08-23 09:51] MED LIST: CHONDR SU A NA/HYALUR INTRAOC KIT (SURGICARE) ONE; EPINEPHRINE INJ/PF 1 MG/1 ML AMPULE ONE; KETOROLAC TROMETHAMINE 0.45% 4 DROP/0.4 ML DROPERETTE OD PRN; LIDOCAINE 1% INJ-PF (10 MG/ML) 30 ML SDV ONE
[2018-08-23] MEDS: TROPICAMIDE 1% OPH SOLN 3 ML OD PRN ×3 (11:23→11:43)
[2018-08-23] MEDS: CYCLOPENTOLATE 0.2%/PHENYLEPHRINE 1% OPH SOLN 2 ML OD PRN ×3 (11:23→11:43)
[2018-08-23] MEDS: BESIFLOXACIN HCL 0.6% OPH SUSP 5 ML BOTTLE OD PRN ×4 (11:24→12:10)
[2018-08-23] MEDS: TETRACAINE HCL 0.5% OPH SOLN 0.6 ML DROPERETTE OD PRN ×3 (11:25→11:50)
[2018-08-23] MEDS ORDERED: LIDOCAINE 1%/PHENYLEPHRINE 1.5% 1 ML VIAL ONE (11:43)
[2018-08-23] MEDS ORDERED: MIDAZOLAM 2 MG/2 ML INJ ONE (11:53)
[2018-08-23] MEDS: TOBRAMYCIN SULFATE/DEXAMETH OPH OINTMENT 3.5 GM ONE ×2 (12:10)
== END 2018-08-23 12:44 | disposition home or self-care (01) ==
LOC: SC 09:51
PROVIDERS: ATTEND Ophthalmology
DX: H25.11 Age-related nuclear cataract, right eye (principal); I10 Essential (primary) hypertension; J45.909 Unspecified asthma, uncomplicated; Z79.51 Long term (current) use of inhaled steroids; Z79.899 Other long term (current) drug therapy; Z79.82 Long term (current) use of aspirin; Z88.0 Allergy status to penicillin; Z85.46 Personal history of malignant neoplasm of prostate
CPT/HCPCS: 66984; V2632; J2250; J3490 ×2; A9270; J0171; J2370; 142

== ENCOUNTER 2018-09-06 09:16 | Day surgery (SDC) | payer MEDICARE, OTHER ==
[~2018-09-06 09:16] MED LIST changes: -CHONDR SU A NA/HYALUR INTRAOC KIT (SURGICARE) ONE; -EPINEPHRINE INJ/PF 1 MG/1 ML AMPULE ONE; -KETOROLAC TROMETHAMINE 0.45% 4 DROP/0.4 ML DROPERETTE OD PRN; +KETOROLAC TROMETHAMINE 0.45% 4 DROP/0.4 ML DROPERETTE OS PRN; -LIDOCAINE 1% INJ-PF (10 MG/ML) 30 ML SDV ONE
[2018-09-06] MEDS: TROPICAMIDE 1% OPH SOLN 3 ML OS PRN ×3 (09:53→10:21)
[2018-09-06] MEDS: CYCLOPENTOLATE 0.2%/PHENYLEPHRINE 1% OPH SOLN 2 ML OS PRN ×3 (09:53→10:21)
[2018-09-06] MEDS: BESIFLOXACIN HCL 0.6% OPH SUSP 5 ML BOTTLE OS PRN ×4 (09:54→10:56)
[2018-09-06] MEDS: TETRACAINE HCL 0.5% OPH SOLN 0.6 ML DROPERETTE OS PRN ×3 (09:55→10:35)
[2018-09-06] MEDS ORDERED: MIDAZOLAM 2 MG/2 ML INJ ONE (10:15)
[2018-09-06] MEDS: EPINEPHRINE INJ/PF 1 MG/1 ML AMPULE ONE ×2 (10:42→10:43)
[2018-09-06] MEDS: CHONDR SU A NA/HYALUR INTRAOC KIT (SURGICARE) ONE ×2 (10:42→10:43)
[2018-09-06] MEDS: LIDOCAINE 1% INJ-PF (10 MG/ML) 30 ML SDV ONE ×2 (10:42→10:43)
[2018-09-06] MEDS: TOBRAMYCIN SULFATE/DEXAMETH OPH OINTMENT 3.5 GM ONE ×2 (10:43→10:56)
== END 2018-09-06 11:30 | disposition home or self-care (01) ==
LOC: SC 09:16
PROVIDERS: ATTEND Ophthalmology
DX: H25.12 Age-related nuclear cataract, left eye (principal); Z98.41 Cataract extraction status, right eye; I10 Essential (primary) hypertension; J44.9 Chronic obstructive pulmonary disease, unspecified; Z79.899 Other long term (current) drug therapy; Z79.51 Long term (current) use of inhaled steroids; Z87.891 Personal history of nicotine dependence; Z85.46 Personal history of malignant neoplasm of prostate
CPT/HCPCS: 66982; V2632; J2250; J3490 ×3; A9270; J0171; 142